=== PATIENT | female | born 2000 | race Caucasian/White ===

== ENCOUNTER 2022-02-12 04:58 | Emergency (ER) | payer OTHER, SELFPAY ==
--- NOTE | ~2022-02-12 | CT_ITS ---
EXAMINATION: CT abdomen pelvis w con DATE: 02/12/2022 06:56 INDICATION: Nausea and vomiting. Lower abdominal pain. TECHNIQUE: Computed tomography (CT) of the abdomen and pelvis was performed with 100 mL Omnipaque 350 intravenous contrast. Automated exposure control and iterative reconstruction technique were employe d. The dose-length product was 233.42 mGy-cm. COMPARISON: None. FINDINGS: The visualized portions of the lung bases demonstrate minimal atelectasis. No pleural effus ion. The heart size is normal. No pericardial effusion. The liver, gallbladder, spleen, pancreas, adr enal glands, and left kidney are normal. There is a 13 mm cyst in right kidney. There is a 3 mm stone in right kidney. There are no dilated loops of bowel. There is an appendicolith in the appendix, whi ch is otherwise normal. There are no pathologically enlarged lymph nodes. There is no free intraperit schulte fluid. There is levocurvature of lumbar spine. IMPRESSION: 1. Small nonobstructing right kidney stone. Reviewed, dictated and finalized at location A. [facility]
[2022-02-12 05:03] VITALS: BP 128/98; PULSE 120; RESP 18; TEMP 36.6; O2SAT 98
--- NOTE | 2022-02-12 05:31 | ED.GENADULT ---
HPI - General Adult General Chief complaint: Nausea/Vomiting/Diarrhea Stated complaint: UTI, n/v after new abd Time Seen by Provider: 02/12/22 05:13 Source: family and RN notes reviewed History of Present Illness HPI narrative: Patient presents emergency department from home for nausea vomiting diarrhea. Patient states symptoms began approximate 12 hours ago. States she had numerous episodes of nausea vomiting as well as diarrhea. States has been associated with abdominal pain described as cramping and diffuse throughout the abdomen. She states she has had subjective fevers but denies any measured temperatures she denies any chest pain shortness of breath or cough. Patient states she was seen by PCP yesterday and diagnosed with UTI and started on Macrobid but is concerned that she could be having vomiting from the Macrobid Related Data Allergies Allergy/AdvReac Type Severity Reaction Status Date / Time No Known Allergies Allergy Verified 02/12/22 04:59 Review of Systems Review of Systems: Gen.: Report subjective fevers ENT: Denies congestion Respiratory: Denies shortness of breath or cough CV: Denies chest pain or palpitations GI: See HPI reports recent UTI on Macrobid Musculoskeletal: Denies back pain or muscle pain Neuro: Denies numbness, tingling, weakness or focal weakness Skin: Denies rash Except as documented, all other systems reviewed and negative [facility] Past Medical History Medical History (Updated 02/12/22 @ 09:02 by Santana Maya MD) Patient denies significant medical history Social History Social History (Updated 02/12/22 @ 05:32 by Hector Harding DO) Smoking status: Never smoker Exam Narrative: APPEARANCE: No acute distress, nontoxic, resting in bed HEENT: Normocephalic, atraumatic, OMM RESPIRATORY: No respiratory distress, clear to auscultation bilaterally with no rhonchi wheezing or rales CARDIOVASCULAR: RRR s murmur ABDOMINAL: Soft nondistended diffusely tender to palpation no rebound or guarding MUSCULOSKELETAl: Moves all extremities. No clubbing, cyanosis or edema. NEURO: Awake and alert. Following commands, speech normal, no focal deficits SKIN:: Warm, dry. Normal Color PSYCHIATRIC: Normal affect/mood Course Course Emergency Course: Care turned over to Dr. Maya at shift change awaiting CT results and further disposition Vital Signs Vital signs: Vital Signs Temperature 97.8 F 02/12/22 05:03 Pulse Rate 120 H 02/12/22 05:03 Respiratory Rate 18 02/12/22 05:03 Blood Pressure 128/98 H 02/12/22 05:03 Pulse Oximetry 98 02/12/22 05:03 Oxygen Delivery Room Air 02/12/22 05:03 Temperature 97.8 F 02/12/22 05:03 Pulse Rate 88 02/12/22 09:04 Respiratory Rate 18 02/12/22 09:04 Blood Pressure 104/71 02/12/22 09:04 Pulse Oximetry 98 02/12/22 09:04 Oxygen Delivery Room Air 02/12/22 05:03 Medical Decision Making MDM Narrative Medical decision making narrative: Patient's abdomen is soft without significant pain or signs of surgical abdomen on serial exams. Lab and x-ray evaluations are reviewed and patient is felt to be a reasonable candidate for outpatient management. Patient was instructed as to limitations of x-ray and laboratory evaluation and encouraged to return to ED or primary physician for repeat exam in 12 hours if continued or worsening pain Vital Signs Vital Signs: Vital Signs Temperature 97.8 F 02/12/22 05:03 Pulse Rate 120 H 02/12/22 05:03 Respiratory Rate 18 02/12/22 05:03 Blood Pressure 128/98 H 02/12/22 05:03 Pulse Oximetry 98 02/12/22 05:03 Oxygen Delivery Room Air 02/12/22 05:03 Temperature 97.8 F 02/12/22 05:03 Pulse Rate 88 02/12/22 09:04 Respiratory Rate 18 02/12/22 09:04 Blood Pressure 104/71 02/12/22 09:04 Pulse Oximetry 98 02/12/22 09:04 Oxygen Delivery Room Air 02/12/22 05:03 Lab Data 02/12/22 05:23 02/12/22 05:32 Labs: Lab Results 0
[2022-02-12 05:37] LABS: Add Urine Microscopic? YES; Appearance Urine Clear (Clear); Bilirubin Urine 1+ (Negative); Blood Urine Negative (Negative); Color Urine Yellow (Yellow); Glucose Urine UA Trace mg/dL (Negative); Ketones Urine 3+ mg/dL (Negative); Leukocyte Esterase Ur Trace LEU/UL (Negative); Nitrate Urine Positive (Negative); Protein Urine 1+ mg/dL (Negative); Specific Grav Ur 1.025 (1.001-1.035)
[2022-02-12] MEDS: SODIUM CHLORIDE 0.9% IV 1,000 ML 999 ML IV CONT ×2 (05:37→05:38)
[2022-02-12 05:38] LABS: Basophils Percent Auto 0.5 % (0.2-1.2); Eosinophils Percent Auto 0.4 % (0-4.4); Hematocrit 42.1 % (37.0-47.0); Hemoglobin 14.1 g/dL (12.0-15.0); Immature Granulocyte Absolute 0.01 K/mm3 (0.00-0.031); Immature Granulocyte Percent A 0.1 % (0-0.5); Mean Corpuscular HGB Conc 33.5 g/dl (32-36); Mean Corpuscular Hemoglobin 29.7 pg (26-34); Mean Corpuscular Volume 88.6 fl (80-100); Mean Platelet Volume 10.3 fl (7.4-10.4); Monocytes Absolute Auto 0.4 K/mm3 (0.1-0.6); Monocytes Percent Auto 4.9 % (2.6-8.5); Neutrophils Absolute Auto 5.5 K/mm3 (1.3-6.7); Neutrophils Percent Auto 69.1 % (45.5-73.1); Platelet Count Result 299 k/mm3 (150-375); Red Blood Count 4.75 M/mm3 (4.2-5.4); Red Cell Distribution Width 12.3 % (11.5-14.5)
[2022-02-12] MEDS: ONDANSETRON INJ 4 MG/2 ML VIAL IV PUSH (05:38)
[2022-02-12 05:43] LABS: Mucus Urine Heavy /lpf; RBC Urine 0-2 /hpf (0-2); Squamous Epithelial Cell Urine Moderate /hpf (Few)
[2022-02-12] MEDS: FAMOTIDINE 20 MG/2 ML VIAL IV PUSH (05:47)
[2022-02-12 05:54] LABS: Lactic Acid Reflex 0.9 mmol/L (0.7-2.0)
[2022-02-12 05:58] LABS: Alanine Aminotransferase 19 U/L (6-35); Albumin Level 4.6 g/dL (3.5-5.1); Alkaline Phosphatase 53 U/L (38-126); Anion Gap 11 mmol/L (8-16); Aspartate Amino Transferase 27 U/L (14-36); Bilirubin,Total 0.5 mg/dL (0.2-1.3); Blood Urea Nitrogen 10 mg/dL (7-17); Calcium 9.1 mg/dL (8.4-10.2); Carbon Dioxide 24 mmol/L (22-30); Chloride 102 mmol/L (98-107); Estimated Glomerular Filt Rate > 60; Glucose 95 mg/dL (65-110); Lipase 92 U/L (23-300); Sodium 137 mmol/L (137-145)
[2022-02-12 07:32] VITALS: BP 110/69; PULSE 90; RESP 18; O2SAT 100
[2022-02-12] MEDS: PROMETHAZINE HCL 25 MG/ML AMPUL 12.5 MG IV PUSH (07:42)
--- NOTE | 2022-02-12 08:57 | ED.GENADULT ---
HPI - General Adult General Chief complaint: Nausea/Vomiting/Diarrhea Stated complaint: UTI, n/v after new abd Time Seen by Provider: 02/12/22 05:13 Source: family and RN notes reviewed Related Data Allergies Allergy/AdvReac Type Severity Reaction Status Date / Time No Known Allergies Allergy Verified 02/12/22 04:59 [facility] Past Medical History Medical History (Updated 02/12/22 @ 09:02 by Santana Maya MD) Patient denies significant medical history Social History Social History (Updated 02/12/22 @ 05:32 by Hector Harding DO) Smoking status: Never smoker Course Course Emergency Course: 09 ZYCH: Patient was signed out to me from Dr. Aguilar and pending imaging and completion of her workup. Urinalysis was indicative of infection and dehydration. Patient is tachycardic upon arrival. She was given fluid resuscitation and a dose of ceftriaxone. She was also given antiemetics. CT showed a nonobstructing stone. On my re-evaluation patient is resting comfortably in bed. Her vital signs have normalized. She is no longer vomiting. She would like to go home and attempt a trial of outpatient therapy. She is afebrile, with no white count normal vital signs I believe she is a good candidate. Patient be discharged with Zofran and cefdinir. Given return precautions. Vital Signs Vital signs: Vital Signs Temperature 97.8 F 02/12/22 05:03 Pulse Rate 120 H 02/12/22 05:03 Respiratory Rate 18 02/12/22 05:03 Blood Pressure 128/98 H 02/12/22 05:03 Pulse Oximetry 98 02/12/22 05:03 Oxygen Delivery Room Air 02/12/22 05:03 Temperature 97.8 F 02/12/22 05:03 Pulse Rate 90 02/12/22 07:32 Respiratory Rate 18 02/12/22 07:32 Blood Pressure 110/69 02/12/22 07:32 Pulse Oximetry 100 02/12/22 07:32 Oxygen Delivery Room Air 02/12/22 05:03 Medical Decision Making Vital Signs Vital Signs: Vital Signs Temperature 97.8 F 02/12/22 05:03 Pulse Rate 120 H 02/12/22 05:03 Respiratory Rate 18 02/12/22 05:03 Blood Pressure 128/98 H 02/12/22 05:03 Pulse Oximetry 98 02/12/22 05:03 Oxygen Delivery Room Air 02/12/22 05:03 Temperature 97.8 F 02/12/22 05:03 Pulse Rate 90 02/12/22 07:32 Respiratory Rate 18 02/12/22 07:32 Blood Pressure 110/69 02/12/22 07:32 Pulse Oximetry 100 02/12/22 07:32 Oxygen Delivery Room Air 02/12/22 05:03 Lab Data 02/12/22 05:23 02/12/22 05:32 Labs: Lab Results 02/12/22 02/12/22 02/12/22 Range/Units 05:23 05:23 05:32 WBC 8.0 (4.5-10.0) K/mm3 RBC 4.75 (4.2-5.4) M/mm3 Hgb 14.1 (12.0-15.0) g/dL Hct 42.1 (37.0-47.0) % MCV 88.6 (80-100) fl MCH 29.7 (26-34) pg MCHC 33.5 (32-36) g/dl RDW 12.3 (11.5-14.5) % Plt Count 299 (150-375) k/mm3 MPV 10.3 (7.4-10.4) fl Immature Gran % (Auto) 0.1 (0-0.5) % Neut % (Auto) 69.1 (45.5-73.1) % Lymph % (Auto) 25.0 (18.3-44.2) % Hickman % (Auto) 4.9 (2.6-8.5) % Eos % (Auto) 0.4 (0-4.4) % Baso % (Auto) 0.5 (0.2-1.2) % Lymph # (Auto) 2.00 (0.9-3.2) K/mm3 Hickman # (Auto) 0.4 (0.1-0.6) K/mm3 Eos # (Auto) 0.0 (0-0.3) K/mm3 Baso # (Auto) 0.0 (0.0-0.1) K/mm3 Abs Immat Gran (auto) 0.01 (0.00-0.031) K/mm3 Absolute Neuts (auto) 5.5 (1.3-6.7) K/mm3 Absolute Nucleated RBC 0.0 (0.0-0.012) K/mm3 Nucleated RBC % 0.0 (0.0-0.2) % Sodium 137 (137-145) mmol/L Potassium 4.0 (3.4-5.0) mmol/L Chloride 102 (98-107) mmol/L Carbon Dioxide 24 (22-30) mmol/L Anion Gap 11 (8-16) mmol/L BUN 10 (7-17) mg/dL Creatinine 0.70 (0.7-1.0) mg/dL Estim Creat Clear Calc Not Reportable Estimated GFR > 60 (59 - ) Glucose 95 (65-110) mg/dL Lactic Acid (0.7-2.0) mmol/L Calcium 9.1 (8.4-10.2) mg/dL Total Bilirubin 0.5 (0.2-1.3) mg/dL AST 27 (14-36) U/L ALT 19 (6-35) U/L Alkaline Phosphatase 53 (38-126) U/L Tot
[2022-02-12 09:04] VITALS: BP 104/71; PULSE 88; RESP 18; O2SAT 98
== END 2022-02-12 09:17 | disposition home or self-care (01) ==
PROVIDERS: Emergency Medicine; Emergency Provider Emergency Medicine
DX: N39.0 Urinary tract infection, site not specified (principal); R11.2 Nausea with vomiting, unspecified
CPT/HCPCS: 36415; 74177; 80053; 81001; 81025; 83605; 83690; 85025; 96365; 96375; 99284; J0696; J2405; J2550; J7030; Q9967